=== PATIENT | female | born 1975 | race Caucasian/White ===

== ENCOUNTER 2017-11-23 13:29 | Day surgery (SDC) | payer MEDICARE, MEDICAID ==
[2017-11-23] VITALS (8 sets, daily range): BP systolic 113–126; BP diastolic 58–78; PULSE 103–111; TEMP 98.3–99
[~2017-11-23] VITALS: Ht 157.5 cm; Wt 70.7 kg
[2017-11-23] MEDS ORDERED: BUSPAR10 MG PO (13:30)
[2017-11-23] MEDS ORDERED: BENICAR HCT 12.1 TAB PO (13:31)
[2017-11-23] MEDS ORDERED: SYNTHROID 0.0.025 MG PO (13:32)
[2017-11-23] MEDS ORDERED: PRAVACHOL 40MG40 MG PO (13:33)
[2017-11-23] MEDS ORDERED: NEXIUM 40MG40 MG PO (13:34)
[2017-11-23] MEDS ORDERED: AMITRIPTYLINE H25 M1 PO (13:34)
[2017-11-23] MEDS ORDERED: PENTASA500 MG PO (13:36)
[2017-11-23] MEDS ORDERED: WELCHOL 625MG625 MG PO (13:37)
[2017-11-23] MEDS ORDERED: GLUCOPHAGE XR500 M1 PO (13:38)
[2017-11-24 02:11] VITALS: BP 112/58; PULSE 112; TEMP 98.6
[2017-11-24 04:55] VITALS: BP 105/56; PULSE 105; TEMP 98.2
[2017-11-24 09:34] VITALS: BP 129/69; PULSE 104; TEMP 98.9
== END 2017-11-24 14:40 | disposition home or self-care (01) ==
LOC: SDCO 13:29 → SURG 13:29 → SDCO 11-24 14:40
DX: K80.12 Calculus of gallbladder with acute and chronic cholecystitis without obstruction (principal); K21.9 Gastro-esophageal reflux disease without esophagitis; E11.9 Type 2 diabetes mellitus without complications; I10 Essential (primary) hypertension; F32.9 Major depressive disorder, single episode, unspecified; Z79.84 Long term (current) use of oral hypoglycemic drugs; Z87.19 Personal history of other diseases of the digestive system
CPT/HCPCS: OP; J1100; J1885; J2270; J2405; J2704; J2710; J3010; J7120; Q9967

== ENCOUNTER 2018-01-10 11:47 | Emergency (ER) | payer MEDICARE, MEDICAID ==
[~2018-01-10] VITALS: Ht 157.5 cm; Wt 69.1 kg
[~2018-01-10 11:47] MED LIST: AMITRIPTYLINE H25 M1 PO; BENICAR HCT 12.1 TAB PO; BUSPAR10 MG PO; GLUCOPHAGE XR500 M1 PO; NEXIUM 40MG40 MG PO; PENTASA500 MG PO; PRAVACHOL 40MG40 MG PO; SYNTHROID 0.0.025 MG PO; WELCHOL 625MG625 MG PO
[2018-01-10 11:52] VITALS: TEMP 99.1
[2018-01-10 12:31] LABS: BASO % 0.4 % (0.0-2.0); GRAN # 6.6 (1.4-6.5); GRAN % 80.5 % (42.2-75.2); HEMATOCRIT 40.7 % (37.0-47.0); HEMOGLOBIN 13.9 g/dl (12.5-16.0); LYMPH # 1.1 (1.2-3.4); LYMPH % 13.1 % (20.0-51.0); MEAN CELL VOLUME 96 fl (80.0-100.0); MEAN CORPUSCULAR HEMOGLOBIN 33 pg (27.0-31.0); MEAN CORPUSCULAR HGB CONC 34 g/dl (33.0-37.0); MONO # 0.5 (0.1-0.6); MONO % 5.8 % (1.7-9.3); PLATELET COUNT 207 K/mm3 (130-400); RED BLOOD COUNT 4.26 M/mm3 (4.10-5.30); REDCELL DISTRIBUTION WIDTH-CV 12.9 % (11.5-14.5)
[2018-01-10 12:38] LABS: ALANINE AMINOTRANSFERASE 36 U/L (9-52); ALBUMIN 4.6 gm/dL (3.5-5.0); ALKALINE PHOSPHATASE 80 U/L (50-136); ANION GAP 17 mmol/L (7-16); AST,SGOT 20 U/L (15-37); BILIRUBIN,TOTAL 0.6 mg/dL (0.0-1.0); BLOOD UREA NITROGEN 11 mg/dL (7-17); CALCIUM 9.6 mg/dL (8.4-10.2); CARBON DIOXIDE 24 mmol/L (22-30); CHLORIDE 101 mmol/L (98-107); CREATININE, serum 0.49 mg/dL (0.52-1.25); GLUCOSE 162 mg/dL (74-106); LIPASE 59 U/L (23-300); POTASSIUM 3.3 mmol/L (3.4-5.0); SODIUM 142 mmol/L (137-145); TOTAL PROTEIN 7.6 gm/dL (6.4-8.2)
[2018-01-10 12:41] LABS: C-REACTIVE PROTEIN < 0.5 mg/dL (0.0-0.9)
[2018-01-10 13:20] LABS: COLLECTION METHOD CLEAN CATCH
[2018-01-10 13:33] LABS: MUCOUS Present /lpf; PH 6 (5-8); URINE APPEARANCE Clear; URINE BACTERIA None Seen /hpf; URINE BILIRUBIN Negative (NEGATIVE); URINE BLOOD Negative (NEGATIVE); URINE COLOR Yellow; URINE GLUCOSE Negative (NEGATIVE); URINE KETONE 1+ (NEGATIVE); URINE LEUKOCYTE ESTERASE Negative (NEGATIVE); URINE NITRATE Negative (NEGATIVE); URINE PROTEIN(semi-quant) Negative (NEGATIVE); URINE RBC 0-2 /hpf; URINE UROBILINOGEN Negative (NEGATIVE)
[2018-01-10 15:34] VITALS: BP 131/89; PULSE 110
== END 2018-01-10 15:35 | disposition home or self-care (01) ==
LOC: COL.ER 11:47
PROVIDERS: Physician Assistant
DX: R10.30 Lower abdominal pain, unspecified (principal); R33.9 Retention of urine, unspecified; E11.9 Type 2 diabetes mellitus without complications; I10 Essential (primary) hypertension; E78.5 Hyperlipidemia, unspecified; E03.9 Hypothyroidism, unspecified; K50.90 Crohn's disease, unspecified, without complications; Z90.49 Acquired absence of other specified parts of digestive tract; Z79.84 Long term (current) use of oral hypoglycemic drugs
CPT/HCPCS: J2405; J2550; J3010; J7030; Q9967

== ENCOUNTER → 2018-01-27 | Outpatient (CLI) | payer MEDICARE, MEDICAID | LOC: COL.RAD 07:58 | DX: Z53.8 Procedure and treatment not carried out for other reasons (principal); K50.90 Crohn's disease, unspecified, without complications ==

== ENCOUNTER → 2018-01-31 | Outpatient (CLI) | payer MEDICARE, MEDICAID | LOC: COL.RAD 13:06 | DX: K50.90 Crohn's disease, unspecified, without complications (principal); Z90.49 Acquired absence of other specified parts of digestive tract ==